=== PATIENT | male | born 1975 | race Caucasian/White ===

== ENCOUNTER 2017-07-12 18:40 | Emergency (ER) | payer OTHER ==
[2017-07-12 19:06] VITALS: BP 119/76; PULSE 63; TEMP 98.3; BMI 24.8
[2017-07-12] MEDS ORDERED: KETOROLAC TROMETHAMINE 60 MG/2 ML VIAL IM ONE (19:26)
--- NOTE | 2017-07-12 19:27 | PDOC ---
History of Present Illness - General History Source: Patient Exam Limitations: No Limitations - History of Present Illness Initial Comments: 07/12/17 19:50 The patient is a 42 year old male, with a significant past medical history of OCD, major depressive disorder, and anxiety, who presents to the emergency department with sudden onset lower back pain today. He describes his pain as ranging from mild to moderate, with radiation to the right lower extremity. He notes the certain movements exacerbates his pain. He states that he was carrying a heavy object on his left hand today when he felt a tweak on his right lower back. He states that he took 4 advils roughly 1 hour ago. He notes that he has had this kind of pain in the past. The patient denies chest pain, shortness of breath, headache and dizziness. Denies fever, chills, nausea, vomit, diarrhea and constipation. Denies dysuria, frequency, urgency and hematuria. Allergies: None Past surgical history: None reported Social history: No alcohol, tobacco or drug use reported <Rich Coffey - Last Filed: 07/12/17 19:58> <Jo Ann Oneil - Last Filed: 07/13/17 06:35> - General Chief Complaint: Back Pain Stated Complaint: RIGHT LOWER BACK PAIN Time Seen by Provider: 07/12/17 19:03 Past History <Rich Coffey - Last Filed: 07/12/17 19:58> - Past Medical History Anemia: No Asthma: No Cancer: No Cardiac Disorders: No CVA: No COPD: No CHF: No Dementia: No Diabetes: No GI Disorders: No Disorders: No HTN: No Hypercholesterolemia: No Liver Disease: No Psychiatric Problems: Yes (DEPRESSION, OCD, ANXIETY) Seizures: No Thyroid Disease: No - Surgical History Abdominal Surgery: No Appendectomy: No Cardiac Surgery: No Cholecystectomy: No Lung Surgery: No Neurologic Surgery: No Orthopedic Surgery: No - Suicide/Smoking/Psychosocial Hx Smoking History: Never smoked Number of Cigarettes Smoked Daily: 0 Hx Alcohol Use: No Drug/Substance Use Hx: No Substance Use Type: None Hx Substance Use Treatment: Yes <Jo Ann Oneil - Last Filed: 07/13/17 06:35> - Past Medical History Allergies/Adverse Reactions: Allergies Allergy/AdvReac Type Severity Reaction Status Date / Time No Known Allergies Allergy Verified 07/12/17 18:55 Home Medications: Ambulatory Orders Diclofenac Sodium [Voltaren -] 75 mg PO BID PRN #20 tablet. 07/12/17 Paroxetine HCl [Paxil] 60 mg PO HS 07/12/17 Review of Systems - Review of Systems Able to Perform ROS?: Yes Comments:: 07/12/17 19:54 GENERAL/CONSTITUTIONAL: No fever or chills. No weakness. HEAD, EYES, EARS, NOSE AND THROAT: No change in vision. No ear pain or discharge. No sore throat. CARDIOVASCULAR: No chest pain or shortness of breath RESPIRATORY: No cough, wheezing, or hemoptysis. GASTROINTESTINAL: No nausea, vomiting, diarrhea or constipation. GENITOURINARY: No dysuria, frequency, or change in urination. MUSCULOSKELETAL: (+) Lower back pain. No joint or muscle swelling or pain. No neck pain. SKIN: No rash NEUROLOGIC: No headache, vertigo, loss of consciousness, or change in strength/ sensation. ENDOCRINE: No increased thirst. No abnormal weight change HEMATOLOGIC/LYMPHATIC: No anemia, easy bleeding, or history of blood clots. ALLERGIC/IMMUNOLOGIC: No hives or skin allergy. <Rich Coffey - Last Filed: 07/12/17 19:58> *Physical Exam - Vital Signs Last Vital Signs Temp Pulse Resp BP Pulse Ox 98.3 F 63 16 119/76 99 07/12/17 18:53 07/12/17 18:53 07/12/17 18:53 07/12/17 18:53 07/12/17 18:53 - Physical Exam Comments: 07/12/17 19:54 GENERAL: Awake, alert, and fully oriented, in no acute distress HEAD: No signs of trauma, normocephalic, atraumatic EYES: PERRLA, EOMI, sclera anicteric, conjunctiva clear ENT: Auricles normal inspection, hearing grossly normal, nares patent, oropharynx clear without exudates. Moist mucosa NECK: Normal ROM, supple, no lymphadenopathy, JVD, or masses LUNGS: No distress, speaks full sentences, clear to auscultation bilaterally HEART: Regular rate and rhythm, normal S1 and S2, no murmurs, rubs or gallops, peripheral pulses normal and equal bilaterally. ABDOMEN: Soft, nontender, normoactive bowel sounds. No guarding, no rebound. No masses EXTREMITIES : (+) Mild tenderness of the right lumbar paraspinal region L4-L5 area. Pain with straight leg raising at 20 degrees on the right. Negative pain with straight leg raise on the left. Deep tendon reflexes were intact, no edema. No clubbing or cyanosis. Deep tendon reflex for patella and Achilles were brisk on the right side. Light touch sensation was equal on the right and left lower extremities. NEUROLOGICAL: Cranial nerves II through XII grossly intact. Normal speech, normal gait, no focal sensorimotor deficits SKIN: Warm, Dry, normal turgor, no rashes or lesions noted. <Rich Coffey - Last Filed: 07/12/17 19:58> - Vital Signs Last Vital Signs Temp Pulse Resp BP Pulse Ox 98.3 F 63 16 119/76 99 07/12/17 18:53 07/12/17 18:53 07/12/17 18:53 07/12/17 18:53 07/12/17 18:53 <Jo Ann Oneil - Last Filed: 07/13/17 06:35> Progress Note - Progress Note Progress Note: Documentation has been prepared under my direction and personally reviewed by me in its entirety. I attest that this documented accurately reflects all work, treatment, procedures and medical decision making performed by me. <Jo Ann Oneil - Last Filed: 07/13/17 06:35> Medical Decision Making - Medical Decision Making Toradol 60 mg IM was administered. Patient felt significant relief in his back discomfort and right sided sciatica. Patient will be discharged with prescription for diclofenac 75 mg twice a day as needed. Patient does not have a general medical doctor will be given 's referral information. He also be given Dr. Brar /Dr. Dwyer referral information for follow-up if he continues to feel lower back pain/ sciatica <Jo Ann Oneil - Last Filed: 07/13/17 06:35> *DC/Admit/Observation/Transfer - Attestations Scribe Attestion: 07/12/17 19:54 Documentation prepared by Rich Coffey, acting as medical chief technician for Jo Ann Oneil MD <Rich Coffey - Last Filed: 07/12/17 19:58> <Jo Ann Oneil - Last Filed: 07/13/17 06:35> Diagnosis at time of Disposition: Sciatica associated with disorder of lumbosacral spine - Discharge Dispostion Disposition: HOME Condition at time of disposition: Stable - Prescriptions Prescriptions: Diclofenac Sodium [Voltaren -] 75 mg PO BID PRN #20 tablet.[address] LEYVA Reason: Pain - Referrals Referrals: Rajiv Brar MD [Staff Physician] - 1 week Davis Arriola MD [Staff Physician] - - Patient Instructions Printed Discharge Instructions: DI for Back Pain With Sciatica Additional Instructions: Avoid strenuous activity for the next 5 days Diclofenac 75 mg twice a day as needed Warm compresses to right lower back as needed Follow-up with orthopedist ([facility]) if you have persistent back/leg discomfort Return to ER if you have persistent, severe pain Followup with Dr Arriola(film technician) for general medical care within 2 weeks
[2017-07-12] MEDS ORDERED: KETOROLAC TROMETHAMINE 60 MG/2 ML VIAL ONE (19:44)
== END 2017-07-12 20:32 | disposition home or self-care (01) ==
LOC: FER 18:40
PROC: 3E0233Z Introduction of Anti-inflammatory into Muscle, Percutaneous Approach (ICD-10-PCS; principal; 2017-07-12)
DX: M54.30 Sciatica, unspecified side (principal)
CPT/HCPCS: 99282-25